=== PATIENT | male | born 1990 | race Caucasian/White ===

== ENCOUNTER 2020-03-17 14:19 | Emergency (ER) | payer MEDICAID ==
[~2020-03-17] VITALS: Ht 182.9 cm; Wt 76.0 kg
[2020-03-17 14:29] VITALS: BP 120/74
--- NOTE | 2020-03-17 15:37 | NUR ---
LIBRARY INFORMATION TECHNICIAN: PT TO ROOM FROM LOBBY
== END 2020-03-17 16:32 | disposition home or self-care (01) ==
LOC: ED 16:25
DX: B34.9 Viral infection, unspecified (principal); Z20.828 Contact with and (suspected) exposure to other viral communicable diseases; R51.9 Headache, unspecified; R43.0 Anosmia
CPT/HCPCS: 71045; 87635; 99284

== ENCOUNTER 2020-07-09 14:24 | Emergency (ER) | payer MEDICAID ==
[~2020-07-09] VITALS: Ht 182.9 cm; Wt 68.4 kg
--- NOTE | 2020-07-09 14:28 | NUR ---
COVERAGE SPECIALIST RN: PT [id number]
--- NOTE | 2020-07-09 14:56 | NUR ---
PT AMBULATED TO ROOM FROM TRIAGE. PT CO SOB AND STERNAL CHEST PAIN THAT IS WORSE WITH COUGHING OR BENDING OVER. PT ALSO HAS FEVER OF 101.2. PT STATED THAT THIS JUST SUDDENLY STARTED EARLY THIS MORNING. PT ALSO CO BODY ACHES AND CHILLS. PT DENIES ANY PMH.
[2020-07-09] MEDS ORDERED: SODIUM CHLORIDE 0.9% 1,000 ML IV ONE (15:30)
[2020-07-09] MEDS ORDERED: SODIUM CHLORIDE FLUSH 10ML SYR IVF ONE (15:30)
[2020-07-09] MEDS ORDERED: ONDANSETRON 2MG/ML, 2ML IVPush ONE (15:30)
[2020-07-09] MEDS ORDERED: SODIUM CHLORIDE 0.9% 1,000ML IVBOLUS ONE (15:30)
[2020-07-09] MEDS ORDERED: ACETAMINOPHEN 500 MG TABLET PO ONE (15:30)
[2020-07-09] MEDS ORDERED: KETOROLAC 30 MG/1 ML IVPush ONE (15:30)
[2020-07-09 15:31] LABS: BASOPHILS % (AUTO) 1 % (0-1); EOSINOPHILS % (AUTO) 0 % (1-7); LYMPHOCYTES % (AUTO) 10 % (22-44); MEAN CORPUSCULAR HEMOGLOBIN 27.9 pg (27.5-34.5); MEAN PLATELET VOLUME 7.1 fL (7.4-10.4); MONOCYTES % (AUTO) 8 % (2-9); NEUTROPHILS % (AUTO) 82 % (42-75); PLATELET COUNT 345 x10^3/uL (130-400); RED CELL DISTRIBUTION WIDTH 13.3 % (9.4-14.8)
[2020-07-09] MEDS ORDERED: KETOROLAC 30 MG/1 ML ONE (15:31)
[2020-07-09] MEDS ORDERED: ONDANSETRON 2MG/ML, 2ML ONE (15:31)
[2020-07-09 15:39] LABS: MD NO
[2020-07-09 15:44] LABS: ALANINE AMINOTRANSFERASE 63 U/L (12-78); ANION GAP 10 mmol/L (5-15); CALCIUM 8.6 mg/dL (8.5-10.1); CHLORIDE 102 mmol/L (98-107); CREATININE 0.89 mg/dL (0.7-1.3)
[2020-07-09] MEDS ORDERED: ACETAMINOPHEN 500 MG TABLET ONE (15:44)
[2020-07-09 15:46] LABS: ALKALINE PHOSPHATASE 80 U/L (45-117); BILIRUBIN,TOTAL 0.8 mg/dL (0.2-1.0); TOTAL PROTEIN 7.4 g/dL (6.4-8.2)
--- NOTE | 2020-07-09 15:47 | NUR ---
IV STARTED AND FLUID BOLUS INITIATED. PT GIVEN MEDICATIONS PER ORDER.
[2020-07-09 16:42] VITALS: BP 116/67
--- NOTE | 2020-07-09 16:43 | NUR ---
PT RESTING COMFORTABLY IN BED. CALL LIGHT WITHIN REACH.
--- NOTE | 2020-07-09 16:59 | NUR ---
TASK RN: PT RESTING SUPINE IN GURNEY W EYES CLOSED. EVEN/REGULAR RESPIRATIONS NOTED. VSS. CHART UP FOR RECHECK. AWAITING DISPO
--- NOTE | 2020-07-09 17:44 | NUR ---
DISCHARGE INSTRUCTIONS REVIEWED WITH PT. ALL QUESTIONS ANSWERED AT THIS TIME.
== END 2020-07-09 17:46 | disposition home or self-care (01) ==
LOC: ED 17:15
DX: J20.9 Acute bronchitis, unspecified (principal); B96.89 Other specified bacterial agents as the cause of diseases classified elsewhere; R50.9 Fever, unspecified; R06.02 Shortness of breath; R07.89 Other chest pain; R05 Cough; J02.9 Acute pharyngitis, unspecified; M79.10 Myalgia, unspecified site
CPT/HCPCS: 36415; 71045; 80053; 85025; 87081; 87880; 93005; 96361; 96374; 96375; 99285; J1885; J2405; J7030

== ENCOUNTER 2020-07-11 19:09 | Emergency (ER) | payer MEDICAID ==
[~2020-07-11] VITALS: Ht 185.4 cm; Wt 70.6 kg
[2020-07-11] MEDS ORDERED: ONDANSETRON 2MG/ML, 2ML IVPush ONE (21:00)
[2020-07-11] MEDS ORDERED: HYDROmorphone 1 MG/ML, 1ML INJ IVPush PRN (21:00)
[2020-07-11] MEDS ORDERED: SODIUM CHLORIDE 0.9% 1,000ML IVBOLUS ONE (21:00)
--- NOTE | 2020-07-11 21:05 | NUR ---
PIV STARTED, FLUIDS RUNNING, LABS DRAWN, PT ON ALL MONITORS, NO OTHER NEEDS AT THIS TIME
[2020-07-11 21:10] LABS: BASOPHILS % (AUTO) 1 % (0-1); EOSINOPHILS % (AUTO) 3 % (1-7); LYMPHOCYTES % (AUTO) 17 % (22-44); MEAN CORPUSCULAR HEMOGLOBIN 27.5 pg (27.5-34.5); MEAN CORPUSCULAR HGB CONC 33.8 g/dL (33.2-36.2); MEAN PLATELET VOLUME 7.4 fL (7.4-10.4); MONOCYTES % (AUTO) 8 % (2-9); NEUTROPHILS % (AUTO) 71 % (42-75); PLATELET COUNT 383 x10^3/uL (130-400); RED CELL DISTRIBUTION WIDTH 13.3 % (9.4-14.8)
[2020-07-11 21:11] LABS: MD NO
[2020-07-11 21:22] LABS: ALBUMIN 2.7 g/dL (3.4-5.0); ANION GAP 6 mmol/L (5-15); CALCIUM 8.1 mg/dL (8.5-10.1); CHLORIDE 107 mmol/L (98-107)
[2020-07-11 21:26] LABS: ALANINE AMINOTRANSFERASE 79 U/L (12-78); ALKALINE PHOSPHATASE 128 U/L (45-117); BILIRUBIN,TOTAL 0.4 mg/dL (0.2-1.0); TOTAL PROTEIN 7.2 g/dL (6.4-8.2)
[2020-07-11] MEDS ORDERED: methylPREDNISolone SOD SUCC 125 MG/2 ML IVPush ONE (22:08)
[2020-07-11 22:20] VITALS: BP 120/70
[2020-07-11] MEDS ORDERED: methylPREDNISolone SOD SUCC 125 MG/2 ML ONE (22:21)
--- NOTE | 2020-07-11 22:45 | NUR ---
Patient/Caregiver given discharge instructions and they have confirmed that they understand the instructions. Patient ambulatory with steady gait.
== END 2020-07-11 23:39 | disposition home or self-care (01) ==
LOC: ED 21:19
DX: J02.9 Acute pharyngitis, unspecified (principal); R00.0 Tachycardia, unspecified
CPT/HCPCS: 36415; 71045; 80053; 85025; 86308; 87081; 87880; 93005; 96361; 96374; 96375; 99285; J1170; J2405; J2930; J7030

== ENCOUNTER 2020-09-20 09:41 | Emergency (ER) | payer MEDICAID ==
[~2020-09-20] VITALS: Ht 182.9 cm; Wt 62.2 kg
--- NOTE | 2020-09-20 09:44 | NUR ---
HUONG RN: CALLED PT NO ANSWER
[2020-09-20 09:47] VITALS: BP 145/99
[2020-09-20] MEDS ORDERED: IBUPROFEN 800 MG TABLET PO ONE (10:30)
[2020-09-20] MEDS ORDERED: IBUPROFEN 800 MG TABLET ONE (10:40)
--- NOTE | 2020-09-20 10:46 | NUR ---
Himanshu RN note: Pt medicated per JUN. Pt resting in bed, NADN, denies other needs.
== END 2020-09-20 11:36 | disposition home or self-care (01) ==
LOC: ED 10:19
DX: J02.8 Acute pharyngitis due to other specified organisms (principal); B97.89 Other viral agents as the cause of diseases classified elsewhere
CPT/HCPCS: 87081; 87880; 99283